=== PATIENT | female | born 1960 | race Caucasian/White ===

== ENCOUNTER → 2018-09-02 | Outpatient (CLI) | payer BC ==
--- NOTE | 2018-09-02 11:25 | RAD ---
Chest, 2 views, 09/02/2018: HISTORY: Dyspnea and productive cough The heart size and pulmonary vascularity are normal. No pulmonary infiltrate is seen. There is no evidence of pleural fluid. Moderate hypertrophic spurring is present in the spine. IMPRESSION: No acute cardiopulmonary abnormality is detected. Electronically signed by: Sixto Kennedy MD (09/02/2018 11:22 AM) [facility]
== END | disposition home or self-care (01) ==
LOC: RAD 10:27
PROVIDERS: ATTEND Internal Medicine Pulmonary Disease
DX: R06.00 Dyspnea, unspecified (principal)
CPT/HCPCS: 71046

== ENCOUNTER 2018-10-28 07:36 | Outpatient (CLI) | payer BC ==
[2018-10-28] VITALS (11 sets, daily range): BP systolic 96–134; BP diastolic 56–86
[~2018-10-28] VITALS: Ht 162.6 cm; Wt 113.4 kg
[2018-10-28 08:09] LABS: HEMATOCRIT 48.8 % (36.0-47.0); HEMOGLOBIN 16.8 g/dL (12.0-15.5); RED BLOOD COUNT 5.51 x10^6/uL (3.50-5.40); RED CELL DISTRIBUTION WIDTH 15.3 % (11.5-14.5); WHITE BLOOD COUNT 6.7 x10^3/uL (4.0-11.0)
[2018-10-28 08:20] LABS: CALCIUM 9.6 mg/dL (8.5-10.1); CREATININE 0.8 mg/dL (0.6-1.0); GFR 73.2; POTASSIUM 3.5 mmol/L (3.5-5.1)
[2018-10-28 08:21] LABS: PROTHROMBIN TIME PATIENT 12.1 SEC (11.7-14.0)
[2018-10-28] MEDS ORDERED: CETI10TA30 PO (08:42)
[2018-10-28] MEDS ORDERED: METH2.5T PO (08:42)
[2018-10-28] MEDS ORDERED: LINA5TAB PO (08:42)
[2018-10-28] MEDS ORDERED: FOLI1TAB16 PO (08:42)
[2018-10-28] MEDS ORDERED: ATEN1TAB4 PO (08:42)
[2018-10-28] MEDS ORDERED: ASPI-630 PO (08:42)
[2018-10-28] MEDS ORDERED: CHOL500016 PO (08:42)
[2018-10-28] MEDS ORDERED: ATOR40TA59 PO (08:42)
[2018-10-28] MEDS ORDERED: MULT-245 PO (08:42)
[2018-10-28] MEDS ORDERED: LIDOCAINE 1% PF 2 ML VIAL. ONE (09:22)
[2018-10-28] MEDS ORDERED: IODIXANOL 320 MG/ML 100 ML VIAL. ONE (09:22)
[2018-10-28] MEDS ORDERED: VERAPAMIL 5 MG/2 ML VIAL. ONE (09:43)
[2018-10-28] MEDS ORDERED: NITROGLYCERIN 200 MCG/2 ML SYRINGE FOR CATH/VASC LAB. ONE (09:43)
[2018-10-28] MEDS ORDERED: MIDAZOLAM HCL/PF 2 MG/2 ML VIAL. ONE ×2 (09:43→10:02)
[2018-10-28] MEDS ORDERED: fentaNYL PF VIAL 100 MCG/2 ML VIAL ONE (09:43)
[2018-10-28] MEDS ORDERED: HEPARIN for IV BOLUS 10,000 UNIT/10 ML VIAL. ONE (09:43)
--- NOTE | 2018-10-28 09:58 | PDOC ---
MODERATE SEDATION ASSESSMENT RISKS/ALTERNATIVES Risks/Alternatives Risks and alternatives of this type of sedation and procedure discussed with: RISK/ALTERNATIVES: Patient H & P ON CHART H & P H & P on chart and reviewed for co-morbid conditions and appropriate labs. H&P ON CHART: Yes STATUS PREG STATUS ASSESSED: N/A MEDS/ALLERGIES REVIEWED Meds/Allergies Reviewed Medications and Allergies including time and route of recently administered narcotics and sedatives. MEDS/ALLERGIES REVIEWED: Yes ASA RATING ASA RATING: II AIRWAY ASSESSMENT Airway Assessment Airway patency, oral function limitations, presence of caps, crowns, dentures, partials, and ability to extend neck assessed. AIRWAY ASSESSMENT: Yes MALLAMPATI SCORE MALLAMPATI SCORE: II PRE-SEDATION ASSESSMENT PRE-SEDATION ASSESSMENT: Yes DMITRY FISHMAN MD Oct 28, 2018 09:58
[2018-10-28] MEDS ORDERED: LIDOCAINE 1% PF 2 ML VIAL. INJ ONE (10:15)
[2018-10-28] MEDS ORDERED: NITROGLYCERIN 200 MCG/2 ML SYRINGE FOR CATH/VASC LAB. IART ONE (10:15)
[2018-10-28] MEDS ORDERED: IODIXANOL 320 MG/ML 100 ML VIAL. IART ONE (10:15)
[2018-10-28] MEDS ORDERED: VERAPAMIL 5 MG/2 ML VIAL. IART ONE (10:15)
[2018-10-28] MEDS ORDERED: MIDAZOLAM HCL/PF 2 MG/2 ML VIAL. IV ONE (10:15)
[2018-10-28] MEDS ORDERED: HEPARIN for IV BOLUS 10,000 UNIT/10 ML VIAL. IART ONE (10:15)
[2018-10-28] MEDS ORDERED: fentaNYL PF VIAL 100 MCG/2 ML VIAL IV ONE (10:15)
--- NOTE | 2018-10-28 10:54 | CARD ---
MR#: [id number] Date of Study: 10/28/2018 Ordering Physician: DMITRY BLACK, Referring Physician: DMITRY BLACK, Tech: RT Pam (R) AKIKO APPROVED REPORT Technologist: RT Pam (R) AKIKO Nurse: Nishi Douglas R.N. Procedure(s) performed: 29 MINUTES SEDATION [facility], Coronary angiography HISTORY : The patient is a 58 year-old female with a history of . INDICATION The indication(s) include : positive stress test. PROCEDURE NARRATIVE INFORMED CONSENT: After explaining the risks and benefits of the procedure and alternatives, informed consent was obtained. The patient was brought electively to the cardiac catheterization lab. A timeout was performed confi rming the patient's name, date of , procedure, and site of procedure. All necessary personnel w ere wearing the appropriate protective equipment and radiation monitor devices. (See nursing notes for medications administered). ACCESS: The right wrist was sterilely prepped and draped in the usual fashion. The right wrist was infiltrat ed with 1 mL of 2% lidocaine for subcutaneous anesthesia. A 6 [place] Terumo glide sheath was inserte d into the right radial artery without difficulty. CORONARY ANGIOGRAPHY: Right and left coronary angiography was performed using a 6Fr TIG 4.0 catheter. Left ventricular en d diastolic pressure was obtained with a TIG catheter and pullback was performed. All catheter excha nges and advancements were performed over a guidewire. CLOSURE: At case completion the right radial sheath was removed and a Terumo radial band was applied with 13 m l of air. COMPLICATIONS: The patient tolerated the procedure well and there were no immediate complications. FINDINGS: HEMODYNAMICS: LVEDP 15 mm Hg No gradient on LV to aortic pullback. AO: 128/78 LEFT VENTRICULOGRAM: Deferred due to known EF. CORONARY ANGIOGRAPHY: LM is a large caliber vessel with normal angiographic appearance. LAD is a large caliber vessel with normal angiographic appearance. Ramus is a large caliber vessel with normal angiographic apeparance. LCx is a large caliber non-dominant vessel with normal angiographic appearance. OM1 is a moderate caliber vessel with normal angiographic appearance. RCA is a large caliber dominant vessel with normal angiographic appearance. RPDA and RPL are moderate caliber vessels with normal angiographic appearance. *Significant vessel tortuosity is noted. Conclusion 1. Normal left sided filling pressures. 2. No significant coronary disease. Recommendations Aggressive medical therapy Smoking cessation Weight loss Signed by : Dmitry Black, Electronically Approved : 10/28/2018 10:52:09
--- NOTE | 2018-10-28 13:00 | NUR ---
discharge instructions reviewed with patient. Pt ambulated and tolerated PO. Pt discharged home with family.
== END 2018-10-28 13:00 | disposition home or self-care (01) ==
LOC: CCL 07:36
PROVIDERS: ATTEND Internal Medicine Cardiovascular Disease
DX: R94.39 Abnormal result of other cardiovascular function study (principal); I10 Essential (primary) hypertension; E78.5 Hyperlipidemia, unspecified; E11.9 Type 2 diabetes mellitus without complications; Z79.899 Other long term (current) drug therapy; Z79.82 Long term (current) use of aspirin; F17.200 Nicotine dependence, unspecified, uncomplicated; Z79.01 Long term (current) use of anticoagulants; Z79.84 Long term (current) use of oral hypoglycemic drugs
CPT/HCPCS: 36415; 80048; 85027; 85610; 93458; 99152; 99153; C1769; C1892; J1644; J2250; J3010; J3490; Q9967